=== PATIENT | male | born 1965 | race Caucasian/White ===

== ENCOUNTER 2020-03-31 19:02 | Inpatient (IN) | payer BC, OTHER ==
[~2020-03-31] VITALS: Ht 175.3 cm; Wt 68.5 kg
[~2020-03-31 19:02] MED LIST: CHLO25TA2 PO; FENO145T PO; LISI-603 PO; METF-440 PO; VALA500T PO
[2020-03-31] MEDS ORDERED: CARV3.122 PO (19:15)
[2020-03-31] MEDS ORDERED: AMLO10TA7 PO (19:15)
[2020-03-31] MEDS ORDERED: RANI300T4 PO (19:15)
[2020-03-31] MEDS ORDERED: ABAC1TAB15 PO (19:15)
[2020-03-31] MEDS ORDERED: ROSU10TA29 PO (19:15)
--- NOTE | 2020-03-31 19:40 | NUR ---
Dr. Borges speaking with Patient's primary Dr. Bonilla.
[2020-03-31] MEDS ORDERED: DEXTROSE IV SCH (20:00)
[2020-03-31] MEDS ORDERED: PENICILLIN POTASSIUM IV SCH (20:00)
--- NOTE | 2020-03-31 20:17 | NUR ---
pt out of er for ct
[2020-03-31 20:21] LABS: BASOPHILS # (AUTO) 0.1 K/uL (0.0-8.0); BASOPHILS % (AUTO) 0.9 % (0.0-2.0); EOSINOPHILS # (AUTO) 0.1 K/uL (0.0-0.7); EOSINOPHILS % (AUTO) 0.5 % (0.0-7.0); HEMOGLOBIN 13.1 g/dL (12.5-16.3); LYMPHOCYTES # (AUTO) 3.1 K/uL (20.0-40.0); LYMPHOCYTES % (AUTO) 20.7 % (20.5-51.5); MEAN CORPUSCULAR HGB CONC 33 g/dL (32.5-36.3); MEAN CORPUSCULAR VOLUME 88.9 fL (73.0-96.2); MONOCYTES % (AUTO) 6.4 % (0.0-11.0); NEUTROPHILS # (AUTO) 10.7 K/uL (1.8-8.9); NEUTROPHILS % (AUTO) 71.5 % (38.5-71.5); PLATELET COUNT (AUTO) 458 K/uL (152-348); WHITE BLOOD COUNT (AUTO) 14.9 K/uL (3.6-10.2)
[2020-03-31 20:29] LABS: BILIRUBIN,DIRECT 0.2 mg/dL (0.0-0.2); BILIRUBIN,TOTAL 0.5 mg/dL (0.2-1.0); TOTAL PROTEIN, SERUM 8.9 g/dL (6.4-8.2)
[2020-03-31 20:33] LABS: POTASSIUM 2.8 mmol/L (3.5-5.1)
[2020-03-31] MEDS ORDERED: POTASSIUM CHLORIDE 20 MEQ TAB.PRT.SR PO ONE (20:45)
[2020-03-31] MEDS ORDERED: POTASSIUM CHLORIDE 20 MEQ TAB.PRT.SR ONE (20:59)
[2020-03-31 21:53] LABS: *BLOOD, URINE NEGATIVE (NEGATIVE); *CLARITY,URINE CLEAR (CLEAR); *COLOR,URINE DARK YELLOW (YELLOW); *KETONES,URINE 1+ (NEGATIVE); LEUKOCYTE ESTERASE ,URINE NEGATIVE (NEGATIVE); NITRITE, URINE NEGATIVE (NEGATIVE); PH,URINE 5.5 (5.0-8.0); UGLUCOSE NEGATIVE (NEGATIVE)
[2020-03-31 21:56] LABS: *BILIRUBIN,URIN 2+ (NEGATIVE)
[2020-03-31 22:24] LABS: BACTERIA,URINE NONE SEEN /HPF (NONE SEEN); RBC,URINE 0-3 /HPF (0-3); SQUAMOUS EPITHELIAL CELL,UR MODERATE /HPF (NONE SEEN); WBC,URINE 0-3 /HPF (0-3)
[2020-03-31] MEDS ORDERED: ONDANSETRON 4 MG/2 ML VIAL ONE (23:09)
[2020-03-31] MEDS ORDERED: ONDANSETRON 4 MG/2 ML VIAL IV ONE (23:15)
[2020-03-31] MEDS ORDERED: CEFTRIAXONE /D5W 50ML IVPB **ER PYXIS IV ONE (23:28)
[2020-03-31] MEDS ORDERED: CEFTRIAXONE 2 G in IV DEXTROSE 5% 100 ML IV ONE (23:30)
--- NOTE | 2020-03-31 23:40 | NUR ---
Daryn Lam RODENT EXTERMINATOR at bedside
[2020-04-01 00:02] VITALS: BP 100/61
[2020-04-01] MEDS ORDERED: ONDANSETRON 4 MG/2 ML VIAL IV PRN (00:45)
[2020-04-01] MEDS ORDERED: MAGNESIUM HYDROXIDE 30 ML LIQUID UDC PO PRN (00:45)
[2020-04-01] MEDS ORDERED: Z GUARD REMEDY PASTE 57 GM TUBE TOP PRN (00:45)
[2020-04-01] MEDS ORDERED: ACETAMINOPHEN 325 MG TABLET PO PRN (00:45)
[2020-04-01] MEDS ORDERED: HYDROCODONE/APAP 5-325MG TABLET PO PRN (00:45)
[2020-04-01] MEDS ORDERED: ZOLPIDEM 5 MG TABLET PO PRN (00:45)
--- NOTE | 2020-04-01 01:00 | NUR ---
Pt. admitted to Room 302 , under care of STEPHANIE Lam Belongs List completed. All belongings with pt aa/ox4. able to speak on complete sentences respirations even and unlabored no s/s of distress transported pt via gurney
[2020-04-01] MEDS: IV NS 1000 ML 1,000 ML IV PRN ×2 (01:27→14:09)
[2020-04-01] MEDS: predniSONE 20 MG TABLET PO SCH ×2 (01:27→09:03)
--- NOTE | 2020-04-01 01:54 | NUR ---
Admitted patient from ER. Dx: Neurosyphilis. Patient is A/Ox4. No signs of acute distress noted. No complaints of pain or SOB. Vitals WNL. Started IVF on the right AC. Patient is ambulatory, steady gait. No skin breakdown noted. Patient stated in ER, started having episodes of diarrhea and is requesting medication, notified on-call Alta Bazzi NP, awaiting for call back. Noted that admitting Blake Lam NP ordered Penicillin G IV, but we do not have medication available. In ER doctors notes, he contacted Dr. Burgess and they administered Rocephin instead, confirmed this with ER nurse, Enriqueta. Will follow up in AM. Patient oriented to unit and room. Safety measures initiated. Bed is low and locked, call light within reach.
[2020-04-01] MEDS: PENICILLIN POTASSIUM IV SCH ×4 (02:00→14:09)
[2020-04-01] MEDS: DEXTROSE IV SCH ×4 (02:00→14:09)
[2020-04-01 04:04] VITALS: BP 101/61
--- NOTE | 2020-04-01 08:30 | NUR ---
PATIENT ALERT ORIENTED, NO SOB NO CHEST PAIN. PATIENT CONTINENT OF BOWEL AND BLADDER. PATIENT IN ROOM AIR AND ASSISTED WITH TOILETING, CONT TO MONITOR.
[2020-04-01 09:18] LABS: MAGNESIUM 1.6 mg/dL (1.8-2.4); PHOSPHOROUS 3.7 mg/dL (2.5-4.9)
[2020-04-01 11:42] VITALS: BP 99/57
--- NOTE | 2020-04-01 12:45 | NUR ---
PATIENT HAS AN ORDER FOR LUMBAR PUNCTURE, DR. VELA WAS AWARE OF THE ORDER, AND DR. VELA HAS ORDER FOR PT, INR PRIOR PROCEDURE OF LUMBAR PUNCTURE. RADIOLOGY DEPARTMENT AWARE OF THE ORDER. PATIENT ALERT ORIENTED ABLE TO SIGN CONSENT FOR THE PROCEDURE.
[2020-04-01 13:20] LABS: BASOPHILS # (AUTO) 0.1 K/uL (0.0-8.0); BASOPHILS % (AUTO) 1.1 % (0.0-2.0); EOSINOPHILS # (AUTO) 0.1 K/uL (0.0-0.7); EOSINOPHILS % (AUTO) 0.9 % (0.0-7.0); HEMATOCRIT 34.5 % (36.7-47.1); HEMOGLOBIN 11.6 g/dL (12.5-16.3); LYMPHOCYTES # (AUTO) 2.3 K/uL (20.0-40.0); LYMPHOCYTES % (AUTO) 22.1 % (20.5-51.5); MEAN CORPUSCULAR HEMOGLOBIN 30.2 uug (23.8-33.4); MEAN CORPUSCULAR HGB CONC 34 g/dL (32.5-36.3); MEAN CORPUSCULAR VOLUME 89.9 fL (73.0-96.2); MONOCYTES # (AUTO) 0.8 K/uL (2.0-10.0); NEUTROPHILS % (AUTO) 67.9 % (38.5-71.5); PLATELET COUNT (AUTO) 462 K/uL (152-348); RED BLOOD CELL COUNT(AUTO) 3.84 MIL/uL (4.06-5.63); WHITE BLOOD COUNT (AUTO) 10.3 K/uL (3.6-10.2)
[2020-04-01 13:41] LABS: BILIRUBIN,TOTAL 0.3 mg/dL (0.2-1.0); CREATININE 1.4 mg/dL (0.6-1.3); POTASSIUM 3.5 mmol/L (3.5-5.1); TOTAL PROTEIN, SERUM 7.2 g/dL (6.4-8.2)
--- NOTE | 2020-04-01 14:51 | NUR ---
CALLED DR. VELA RESULT OF PT INR, AND RADIOLOGY DEPT WAS NOTIFIED TO CALL DR. VELA TO COORDINATE THE PROCEDURE. PATIENT AWARE, AND AWARE OF THE DISCHARGE AFTER PROCEDURE PROVIDED THAT PATIENT STABLE WHEN DISCHARGE.
--- NOTE | 2020-04-01 15:07 | NUR ---
PATIENT REFUSED LUMBAR PUNCTURE. PREFER TO BE DISCHARGE AT THIS TIME.
--- NOTE | 2020-04-01 15:08 | NUR ---
FRANCISCO BARRAGAN NOTIFIED OF REFUSAL, AND PATIENT REQUEST DR. FRANCISCO MURPHY TO COMMUNICATE WITH PATIENT INFECTIOUS DISEASE MD.
[2020-04-01 15:57] VITALS: BP 98/63
--- NOTE | 2020-04-01 16:19 | NUR ---
PATIENT DISCHARGE HOME VIA PRIVATE CAR. PATIENT TOOK ALL BELONGINGS, AND ACCOMPANIED BY PRODUCT MANAGEMENT ANALYST TO HIS CAR.
[2020-04-03 08:06] LABS: *BASOS 1 % (Not Estab.); *BASOS,ABSOLUTE 0.1 x10E3/uL (0.0-0.2); *EOS 0 % (Not Estab.); *HCT 40.4 % (37.5-51.0); *HGB 13.1 g/dL (13.0-17.7); *IMMATURE GRANULOCYTES 0 % (Not Estab.); *LYMPHOCYTES 22 % (Not Estab.); *LYMPHOCYTES ABSOLUTE 3.3 x10E3/uL (0.7-3.1); *MCH 29.1 pg (26.6-33.0); *MCHC 32.4 g/dL (31.5-35.7); *MCV 90 fL (79-97); *MONOCYTES 6 % (Not Estab.); *MONOCYTES ABSOLUTE 0.9 x10E3/uL (0.1-0.9); *NEUTROPHILS 71 % (Not Estab.); *NEUTROPHILS ABSOLUTE 10.6 x10E3/uL (1.4-7.0); *PLT 482 x10E3/uL (150-450); *RDW 14.2 % (11.6-15.4); *WBC 14.9 x10E3/uL (3.4-10.8)
[2020-04-03 11:37] LABS: *HELPER T-LYMPH MARKR(CD4)ABSO 1119 /uL (359-1519); *HELPER T-LYNPH MARKER CD4)% 33.9 % (30.8-58.5)
[2020-04-04 14:06] LABS: CRYPTOCOCCUS AB, SERUM Negative (Negative)
== END 2020-04-01 16:19 | disposition home or self-care (01) | DRG 977 ==
LOC: ER 19:05 → MEDSURG3 04-01 00:21
DX: B20 Human immunodeficiency virus [HIV] disease (principal); N17.0 Acute kidney failure with tubular necrosis; A51.49 Other secondary syphilitic conditions; D72.829 Elevated white blood cell count, unspecified; E78.5 Hyperlipidemia, unspecified; E83.42 Hypomagnesemia; E87.6 Hypokalemia; R73.03 Prediabetes; Z85.828 Personal history of other malignant neoplasm of skin; N18.9 Chronic kidney disease, unspecified; I12.9 Hypertensive chronic kidney disease with stage 1 through stage 4 chronic kidney disease, or unspecified chronic kidney disease; Z53.9 Procedure and treatment not carried out, unspecified reason
CPT/HCPCS: 36415; 70450; 76770; 83735; 84100; 85025; 85610; 85730; 86361; 86625; 87046; 87328; G0378; J0696; J2405; J2540; J7030; J7060; J7512